=== PATIENT | male | born 1985 | race Caucasian/White ===

== ENCOUNTER 2019-12-30 13:29 | Emergency (ER) | payer SELFPAY ==
[2019-12-30 13:35] VITALS: BP 125/71
--- NOTE | 2019-12-30 14:13 | ER Document Report ---
HPI - HPI Patient complains to provider of: cough Time Seen by Provider: 12/30/19 14:07 Onset: Last week Onset/Duration: Persistent Quality of pain: Achy Context: 34-year-old male presents emergency department with complaints of cough for the past week. Reports he is coughing so hard his chest is hurting back is hurting. Denies fever vomiting reports some diarrhea. Did not receive the flu vaccine this year. Has been taking Delsym without relief of symptoms Associated Symptoms: Nonproductive cough, Diarrhea Exacerbated by: Coughing Relieved by: Denies Similar symptoms previously: No Recently seen / treated by doctor: No Past Medical History - General Information source: Patient - Social History Smoking Status: Current Every Day Smoker Cigarette use (# per day): Yes Frequency of alcohol use: None Drug Abuse: None Lives with: Family Family History: Reviewed & Not Pertinent Pulmonary Medical History: Reports: Hx Asthma Past Surgical History: Reports: Hx Oral Surgery - Jaw, Hx Orthopedic Surgery - B Knees, Hx Tonsillectomy - Immunizations Hx Diphtheria, Pertussis, Tetanus Vaccination: Yes Vertical Provider Document - CONSTITUTIONAL Agree With Documented VS: Yes Exam Limitations: No Limitations General Appearance: WD/WN, No Apparent Distress - INFECTION CONTROL TRAVEL OUTSIDE OF THE [place] IN LAST 30 DAYS: No - HEENT HEENT: Atraumatic, Normocephalic. negative: Conjuctival Injection, Pharyngeal Erythema, Tympanic Membrane Red - NECK Neck: Normal Inspection, Supple. negative: Lymphadenopathy-Left, Lymphadenopathy-Right - RESPIRATORY Respiratory: No Respiratory Distress - CARDIOVASCULAR Cardiovascular: Regular Rate, Regular Rhythm - GI/ABDOMEN Gastrointestinal: Abdomen Soft, Abdomen Non-Tender - BACK Back: Normal Inspection - MUSCULOSKELETAL/EXTREMETIES Musculoskeletal/Extremeties: MAEW, FROM - NEURO Level of Consciousness: Awake, Alert, Appropriate Motor/Sensory: No Motor Deficit - DERM Integumentary: Warm, Dry, No Rash Course - Re-evaluation Re-evalutation: 12/30/19 14:45 Chest X-Ray 12/30/19 14:10 IMPRESSION: FAINT DENSITIES IN THE LEFT LUNG, POSSIBLE DEVELOPING PNEUMONIA. 12/30/19 17:17 X-ray shows possible pneumonia. Patient has been coughing for a week. patient instructed on possible pneumonia. Instructed on Z-Valentin encouraged to quit smoking. Also encouraged to push fluids monitor his temperature return for any concerns difficulty breathing. He verbalized understanding to all instructions. - Vital Signs Vital signs: Temp Pulse Resp BP Pulse Ox 99.4 F 100 18 125/71 94 12/30/19 13:34 12/30/19 13:34 12/30/19 13:34 12/30/19 13:34 12/30/19 13:34 - Diagnostic Test Radiology reviewed: Image reviewed, Reports reviewed Discharge - Discharge Clinical Impression: Cough Pneumonia Qualifiers: Pneumonia type: due to unspecified organism Laterality: left Lung location: lower lobe of lung Qualified Code(s): J18.9 - Pneumonia, unspecified organism Condition: Stable Disposition: HOME, SELF-CARE Instructions: Azithromycin ([facility]), Pneumonia ([facility]), Stop Smoking ([facility]), Tessalon Perles ([facility]) Additional Instructions: *You have been evaluated for a cough, pneumonia, bronchitis *Take medication as prescribed *Increase fluids *Quit smoking *Monitor your temperature, take Tylenol as indicated *Follow up with a primary care provider within 1 week for recheck *Return to ED for increasing fever, cough, worsening condition, changes, needs, difficulty breathing concerns Prescriptions: Benzonatate [Tessalon Perles 100 mg Capsule] 100 mg PO Q8HP PRN #20 capsule PRN Reason: Azithromycin [Zithromax 250 mg Tablet] 500 mg PO DAILY #6 tab Forms: Elevated Blood Pressure, Smoking Cessation Education, Return to Work
--- NOTE | 2019-12-30 14:31 | RADIOLOGY REPORT (SQ) ---
EXAM DESCRIPTION: CHEST 2 VIEWS COMPLETED DATE/TIME: 12/30/2019 2:23 pm REASON FOR STUDY: cough COMPARISON: None. EXAM PARAMETERS: NUMBER OF VIEWS: two views TECHNIQUE: Digital Frontal and Lateral radiographic views of the chest acquired. RADIATION DOSE: NA LIMITATIONS: none FINDINGS: LUNGS AND PLEURA: Faint density in the left mid perihilar lung and retrocardiac left base. MEDIASTINUM AND HILAR STRUCTURES: No masses or contour abnormalities. HEART AND VASCULAR STRUCTURES: Heart normal size. No evidence for failure. BONES: No acute findings. HARDWARE: None in the chest. OTHER: No other significant finding. IMPRESSION: FAINT DENSITIES IN THE LEFT LUNG, POSSIBLE DEVELOPING PNEUMONIA. TECHNICAL DOCUMENTATION: JOB ID: [id number] [employer]- All Rights Reserved Reading location - IP/workstation name: [email or web address]
== END 2019-12-30 15:02 | disposition home or self-care (01) ==
LOC: ER 13:29
DX: J18.9 Pneumonia, unspecified organism (principal); R05 Cough; R19.7 Diarrhea, unspecified; F17.210 Nicotine dependence, cigarettes, uncomplicated
CPT/HCPCS: 71046; 99283